=== PATIENT | male | born 1950 | race Caucasian/White ===

== ENCOUNTER 2018-11-24 11:17 | Inpatient (IN) | payer MEDICARE, BC ==
[2018-11-24] MEDS ORDERED: Ibuprofen 200 MG Tab PO PRN (11:47)
[2018-11-24] MEDS ORDERED: Ondansetron 4 MG/2 ML SDV IV PRN (11:47)
[2018-11-24] MEDS ORDERED: Sodium Chloride 0.9% 10 ML Syringe FLUSH PRN (11:47)
[2018-11-24] MEDS ORDERED: Ondansetron 4 MG Tab.DIS PO PRN (11:47)
[2018-11-24] MEDS ORDERED: Temazepam 15 MG Cap PO PRN (11:47)
[2018-11-24] MEDS ORDERED: Nitroglycerin 0.4 MG Tab.SL SL PRN (11:51)
[2018-11-24] MEDS ORDERED: Famotidine 20 MG Tab PO PRN (11:51)
[2018-11-24] MEDS ORDERED: Clindamycin Phosphate in D5W 300 MG in Premix Bag 1 BAG IV SCH ×2 (12:00)
[2018-11-24 12:31] LABS: CHLORIDE,CL 103 mEq/L (98-106); SODIUM,NA 143 mEq/L (136-145)
[2018-11-24] MEDS: Acetaminophen 325 MG Tab PO PRN ×2 (12:31→19:35)
[2018-11-24] MEDS: Sodium Chloride 0.9% 1,000 ML IV SCH (12:32)
[2018-11-24] MEDS: Enoxaparin 40 MG/0.4 ML Syringe SUBCUT SCH (16:02)
[2018-11-24] MEDS: Gemfibrozil 600 MG Tab PO SCH (19:35)
[2018-11-24] MEDS: Metoprolol Tartrate 25 MG Tab PO SCH (19:36)
[2018-11-24] MEDS: atorvaSTATin 20 MG Tab PO SCH (19:36)
[2018-11-24] MEDS: Clindamycin Phosphate in D5W 300 MG in Premix Bag 1 BAG IV SCH ×2 (19:37)
[2018-11-24] MEDS: [UNRECOGNIZED DRUG - REMARK] PO SCH (19:41)
[2018-11-25] MEDS: Clindamycin Phosphate in D5W 300 MG in Premix Bag 1 BAG IV SCH ×8 (01:28→19:30)
[2018-11-25] MEDS: Sodium Chloride 0.9% 1,000 ML IV SCH ×2 (02:04→14:56)
[2018-11-25] MEDS: Acetaminophen 325 MG Tab PO PRN ×2 (04:13→19:29)
[2018-11-25] MEDS: Gemfibrozil 600 MG Tab PO SCH ×2 (07:35→19:29)
[2018-11-25] MEDS: Metoprolol Tartrate 25 MG Tab PO SCH ×2 (07:35→19:29)
[2018-11-25] MEDS: Spironolactone 25 MG Tab PO SCH (07:35)
[2018-11-25] MEDS: Lisinopril 20 MG Tab PO SCH (07:36)
[2018-11-25] MEDS: [UNRECOGNIZED DRUG - REMARK] PO SCH ×2 (07:36→19:30)
[2018-11-25] MEDS: Clopidogrel 75 MG Tab PO SCH (07:36)
[2018-11-25] MEDS: amLODIPine 2.5 MG Tab PO SCH (07:37)
[2018-11-25] MEDS: OMEGA PO SCH (09:17)
[2018-11-25] MEDS: [UNRECOGNIZED DRUG - OTHER] PO SCH (09:17)
[2018-11-25] MEDS: FATTY ACIDS PO SCH (09:17)
[2018-11-25] MEDS: FISH OIL PO SCH (09:17)
--- NOTE | 2018-11-25 14:42 | PCM.PN ---
- General Info Date of Service: 11/25/18 Admission Dx/Problem (Free Text): Erisypelas Functional Status: Reports: Pain Controlled, Tolerating Diet - Review of Systems General: Reports: Fever, Weakness, Fatigue, Malaise, Chills HEENT: Reports: Ear Pain, Sinus Congestion. Denies: Sore Throat Pulmonary: Denies: Shortness of Breath, Cough, Sputum Cardiovascular: Denies: Chest Pain, Edema, Lightheadedness Gastrointestinal: Reports: Nausea (does have mild nausea but is improved). Denies: Abdominal Pain Genitourinary: Reports: No Symptoms Musculoskeletal: Reports: No Symptoms Skin: Reports: Other (facial redness) Neurological: Reports: No Symptoms - Patient Data Vitals - Most Recent: Last Vital Signs Temp 98.9 F 11/25/18 12:00 Pulse 75 11/25/18 12:00 Resp 20 11/25/18 12:00 BP 122/71 11/25/18 12:00 Pulse Ox 96 11/25/18 12:00 Weight - Most Recent: 242 lb 11.2 oz I&O - Last 24 Hours: Intake & Output 11/24/18 11/25/18 11/25/18 22:59 06:59 14:59 Intake Total 50 1050 50 Balance 50 1050 50 Marcial Results Last 24 Hours: Microbiology 11/24/18 12:10 Aerobic Blood Culture - Preliminary Blood - Venous NO GROWTH AFTER 1 DAY Anaerobic Blood Culture - Preliminary NO GROWTH AFTER 1 DAY 11/24/18 12:15 Aerobic Blood Culture - Preliminary Blood - Venous - Lab Draw NO GROWTH AFTER 1 DAY Anaerobic Blood Culture - Preliminary NO GROWTH AFTER 1 DAY Med Orders - Current: Current Medications Acetaminophen (Tylenol) 650 mg PO Q4H PRN PRN Reason: Pain (Mild 1-3)/fever Last Admin: 11/25/18 04:13 Dose: 650 mg Amlodipine Besylate (Norvasc) 5 mg PO DAILY [facility] Last Admin: 11/25/18 07:37 Dose: 5 mg Atorvastatin Calcium (Lipitor) 40 mg PO BEDTIME [facility] Last Admin: 11/24/18 19:36 Dose: 40 mg Clopidogrel Bisulfate (Plavix) 75 mg PO DAILY [facility] Last Admin: 11/25/18 07:36 Dose: 75 mg Enoxaparin Sodium (Lovenox) 40 mg SUBCUT Q24H [facility] Last Admin: 11/24/18 16:02 Dose: 40 mg Famotidine (Pepcid) 10 mg PO DAILY PRN PRN Reason: Dyspepsia Last Admin: 11/24/18 16:02 Dose: 10 mg Gemfibrozil (Lopid) 600 mg PO BID [facility] Last Admin: 11/25/18 07:35 Dose: 600 mg Sodium Chloride (Normal Saline) 1,000 mls @ 75 mls/hr IV ASDIRECTED [facility] Last Admin: 11/25/18 02:04 Dose: 75 mls/hr Clindamycin Phosphate 300 mg/ (Premix) 50 mls @ 100 mls/hr IV 0200,0800,1400, 2000 [facility] Last Admin: 11/25/18 14:01 Dose: 100 mls/hr Ibuprofen (Motrin) 400 mg PO Q6H PRN PRN Reason: Pain (mild 1-3) Lisinopril (Prinivil) 20 mg PO DAILY [facility] Last Admin: 11/25/18 07:36 Dose: 20 mg Metoprolol Tartrate (Lopressor) 25 mg PO BID [facility] Last Admin: 11/25/18 07:35 Dose: 25 mg Nitroglycerin (Nitrostat) 0.4 mg SL ASDIRECTED PRN PRN Reason: Chest Pain Non Form Niacin (1,000 Mg Tab) 1,000 mg PO BID [facility] Last Admin: 11/25/18 07:36 Dose: 1,000 mg Ondansetron HCl (Zofran Odt) 4 mg PO Q4H PRN PRN Reason: nausea, able to take PO Ondansetron HCl (Zofran) 4 mg IV Q4H PRN PRN Reason: Nausea/Vomiting Last Admin: 11/24/18 16:02 Dose: 4 mg Sodium Chloride (Saline Flush) 10 ml FLUSH ASDIRECTED PRN PRN Reason: Keep Vein Open Spironolactone (Aldactone) 25 mg PO DAILY [facility] Last Admin: 11/25/18 07:35 Dose: 25 mg Temazepam (Restoril) 15 mg PO BEDTIME PRN PRN Reason: Sleep Discontinued Medications Clindamycin Phosphate 300 mg/ (Premix) 50 mls @ 100 mls/hr IV Q6H [facility] Last Admin: 11/24/18 12:32 Dose: 100 mls/hr Non-Formulary Medication (Fish Oil/[place]-3 Fatty Acids [Fish Oil 1,000 Mg]) 2 cap PO BID [facility] Last Admin: 11/25/18 09:17 Dose: Not Given - Exam General: Alert, Oriented HEENT: Mucous Membr. Moist/[place] Neck: Supple Lungs: Clear to Auscultation, Normal Respiratory Effort Cardiovascular: Regular Rate, Regular Rhythm GI/Abdominal Exam: Normal Bowel Sounds, Soft, Non-Tender Extremities: Normal Inspection, No Pedal Edema Skin: Other (patient's redness is still present but not as vivid as yesterday. Still warm to the touch. Left ear still has mild swelling.) Neurological: No New Focal Deficit - Problem List & Annotations (1) Erysipelas SNOMED Code(s): 64354170 Code(s): A46 - ERYSIPELAS Status: Acute Priority: High Current Visit: Yes - Problem List Review Problem List Initiated/Reviewed/Updated: Yes - My Orders Last 24 Hours: My Active Orders 11/24/18 16:00 Enoxaparin [Lovenox] 40 mg SUBCUT Q24H 11/24/18 20:00 Clindamycin Phosphate in D5W [Cleocin in D5W] 300 mg Premix Bag 1 bag IV 0200, 0800,1400,2000 Gemfibrozil [Lopid] 600 mg PO BID Metoprolol Tartrate [Lopressor] 25 mg PO BID Niacin [Niacin] 1,000 mg PO BID atorvaSTATin [Lipitor] 40 mg PO BEDTIME 11/24/18 Dinner Agate [Soft Diet] [DIET] 11/25/18 08:00 Clopidogrel [Plavix] 75 mg PO DAILY Lisinopril [Prinivil] 20 mg PO DAILY Spironolactone [Aldactone] 25 mg PO DAILY amLODIPine [Norvasc] 5 mg PO DAILY 11/26/18 05:11 BASIC METABOLIC PANEL,BMP [CHEM] AM C-REACTIVE PROTEIN [CHEM] AM CBC WITH AUTO DIFF [HEME] AM - Assessment Assessment:: Erysipelas - Plan Plan:: Patient has some improvement of his facial redness and swelling since yesterday. He states he does feel less achy today, less nausea. He is running low grade fevers now. Tolerating fluids, not eating all that much yet. WBC on admit yesterday did show elevation at 11.6, CRP of 22. Will continue with IV Cleocin. Treat fevers. Repeat labs in am.
[2018-11-25] MEDS: Enoxaparin 40 MG/0.4 ML Syringe SUBCUT SCH (15:44)
[2018-11-25] MEDS: atorvaSTATin 20 MG Tab PO SCH (19:29)
[2018-11-26] MEDS: Clindamycin Phosphate in D5W 300 MG in Premix Bag 1 BAG IV SCH ×8 (02:23→19:44)
[2018-11-26] MEDS: Sodium Chloride 0.9% 1,000 ML IV SCH ×2 (05:33→19:48)
[2018-11-26 07:31] LABS: CHLORIDE,CL 108 mEq/L (98-106); SODIUM,NA 145 mEq/L (136-145)
[2018-11-26] MEDS: Spironolactone 25 MG Tab PO SCH (07:34)
[2018-11-26] MEDS: Gemfibrozil 600 MG Tab PO SCH ×2 (07:34→19:44)
[2018-11-26] MEDS: Metoprolol Tartrate 25 MG Tab PO SCH ×2 (07:34→19:43)
[2018-11-26] MEDS: amLODIPine 2.5 MG Tab PO SCH (07:35)
[2018-11-26] MEDS: Clopidogrel 75 MG Tab PO SCH (07:35)
[2018-11-26] MEDS: [UNRECOGNIZED DRUG - REMARK] PO SCH ×2 (07:35→19:44)
[2018-11-26] MEDS: Lisinopril 20 MG Tab PO SCH (07:36)
--- NOTE | 2018-11-26 11:09 | PCM.PN ---
- General Info Date of Service: 11/26/18 Admission Dx/Problem (Free Text): Erisypelas Functional Status: Reports: Pain Controlled - Review of Systems General: Reports: No Symptoms HEENT: Reports: No Symptoms Pulmonary: Reports: No Symptoms Cardiovascular: Reports: No Symptoms Gastrointestinal: Reports: No Symptoms Genitourinary: Reports: No Symptoms Musculoskeletal: Reports: No Symptoms Skin: Reports: Rash (redness to face ), Other Psychiatric: Reports: No Symptoms - Patient Data Vitals - Most Recent: Last Vital Signs Temp 98.4 F 11/26/18 08:00 Pulse 79 11/26/18 08:00 Resp 20 11/26/18 08:00 BP 129/83 11/26/18 08:00 Pulse Ox 96 11/26/18 08:00 Weight - Most Recent: 242 lb 11.2 oz I&O - Last 24 Hours: Intake & Output 11/25/18 11/26/18 11/26/18 22:59 06:59 14:59 Intake Total 50 1050 Balance 50 1050 Lab Results Last 24 Hours: Laboratory Results - last 24 hr 11/26/18 11/26/18 Range/Units 05:11 05:11 WBC 7.0 (5.0-10.0) 10^3/uL RBC 4.46 L (4.50-6.00) 10^6/uL Hgb 14.0 (14.0-18.0) g/dL Hct 41.5 (40.0-54.0) % MCV 93.0 (82.0-94.0) fL MCH 31.4 (27.0-32.0) pg MCHC 33.7 (33.0-38.0) g/dL RDW Coeff of Sudhir 12.9 (11.0-15.0) % Plt Count 157 (150-400) 10^3/uL Neut % (Auto) 71.5 (35-85) % Lymph % (Auto) 15.1 (10-55) % [place] % (Auto) 10.5 (0-16) % Eos % (Auto) 2.8 (0-5) % Baso % (Auto) 0.1 (0-3) % Neut # (Auto) 5.02 (1.80-7.00) 10^3/uL Lymph # (Auto) 1.06 (1.00-4.80) 10^3/uL [place] # (Auto) 0.74 (0.00-0.80) 10^3/uL Eos # (Auto) 0.20 (0.00-0.45) 10^3/uL Baso # (Auto) 0.01 10^3/uL Sodium 145 (136-145) mEq/L Potassium 3.4 L (3.5-5.0) mEq/L Chloride 108 H (98-106) mEq/L Carbon Dioxide 30 (21-32) mmol/L BUN 13 (7-18) mg/dL Creatinine 0.8 (0.7-1.3) mg/dL Est Cr Clr Drug Dosing 90.83 mL/min Estimated GFR (MDRD) > 60 (>=60) mL/min Glucose 121 H (75-99) mg/dL Calcium 8.3 L (8.4-10.1) mg/dL C-Reactive Protein 7.7 H (0.2-0.8) mg/dL Marcial Results Last 24 Hours: Microbiology 11/24/18 12:10 Aerobic Blood Culture - Preliminary Blood - Venous NO GROWTH AFTER 1 DAY Anaerobic Blood Culture - Preliminary NO GROWTH AFTER 1 DAY 11/24/18 12:15 Aerobic Blood Culture - Preliminary Blood - Venous - Lab Draw NO GROWTH AFTER 1 DAY Anaerobic Blood Culture - Preliminary NO GROWTH AFTER 1 DAY Med Orders - Current: Current Medications Acetaminophen (Tylenol) 650 mg PO Q4H PRN PRN Reason: Pain (Mild 1-3)/fever Last Admin: 11/25/18 19:29 Dose: 650 mg Amlodipine Besylate (Norvasc) 5 mg PO DAILY [facility] Last Admin: 11/26/18 07:35 Dose: 5 mg Atorvastatin Calcium (Lipitor) 40 mg PO BEDTIME [facility] Last Admin: 11/25/18 19:29 Dose: 40 mg Clopidogrel Bisulfate (Plavix) 75 mg PO DAILY [facility] Last Admin: 11/26/18 07:35 Dose: 75 mg Enoxaparin Sodium (Lovenox) 40 mg SUBCUT Q24H [facility] Last Admin: 11/25/18 15:44 Dose: 40 mg Famotidine (Pepcid) 10 mg PO DAILY PRN PRN Reason: Dyspepsia Last Admin: 11/24/18 16:02 Dose: 10 mg Gemfibrozil (Lopid) 600 mg PO BID [facility] Last Admin: 11/26/18 07:34 Dose: 600 mg Sodium Chloride (Normal Saline) 1,000 mls @ 75 mls/hr IV ASDIRECTED [facility] Last Admin: 11/26/18 05:33 Dose: 75 mls/hr Clindamycin Phosphate 300 mg/ (Premix) 50 mls @ 100 mls/hr IV 0200,0800,1400, 2000 [facility] Last Admin: 11/26/18 07:31 Dose: 100 mls/hr Ibuprofen (Motrin) 400 mg PO Q6H PRN PRN Reason: Pain (mild 1-3) Lisinopril (Prinivil) 20 mg PO DAILY [facility] Last Admin: 11/26/18 07:36 Dose: 20 mg Metoprolol Tartrate (Lopressor) 25 mg PO BID [facility] Last Admin: 11/26/18 07:34 Dose: 25 mg Nitroglycerin (Nitrostat) 0.4 mg SL ASDIRECTED PRN PRN Reason: Chest Pain Non Form Niacin (1,000 Mg Tab) 1,000 mg PO BID [facility] Last Admin: 11/26/18 07:35 Dose: 1,000 mg Ondansetron HCl (Zofran Odt) 4 mg PO Q4H PRN PRN Reason: nausea, able to take PO Ondansetron HCl (Zofran) 4 mg IV Q4H PRN PRN Reason: Nausea/Vomiting Last Admin: 11/24/18 16:02 Dose: 4 mg Sodium Chloride (Saline Flush) 10 ml FLUSH ASDIRECTED PRN PRN Reason: Keep Vein Open Spironolactone (Aldactone) 25 mg PO DAILY [facility] Last Admin: 11/26/18 07:34 Dose: 25 mg Temazepam (Restoril) 15 mg PO BEDTIME PRN PRN Reason: Sleep Discontinued Medications Clindamycin Phosphate 300 mg/ (Premix) 50 mls @ 100 mls/hr IV Q6H [facility] Last Admin: 11/24/18 12:32 Dose: 100 mls/hr Non-Formulary Medication (Fish Oil/[place]-3 Fatty Acids [Fish Oil 1,000 Mg]) 2 cap PO BID [facility] Last Admin: 11/25/18 09:17 Dose: Not Given - Exam General: Alert, Oriented HEENT: Pupils Equal, Pupils Reactive Neck: Supple Lungs: Clear to Auscultation, Normal Respiratory Effort Cardiovascular: Regular Rate, Regular Rhythm GI/Abdominal Exam: Normal Bowel Sounds Extremities: Normal Inspection, No Pedal Edema Skin: Dry, Intact, Rash, Other (decreasing redness to the face and retreating of redness as well. Ears still red and swollen with left being worse than right and tender on touch. ) Neurological: No New Focal Deficit Psy/Mental Status: Alert - Problem List Review Problem List Initiated/Reviewed/Updated: Yes - Assessment Assessment:: Erysipelas - Plan Plan:: Patient has some improvement of his facial redness and swelling since yesterday. He states he does feel less achy today, less nausea. He is running low grade fevers now. Tolerating fluids, not eating all that much yet. WBC on admit yesterday did show elevation at 11.6, CRP of 22. Will continue with IV Cleocin. Treat fevers. Repeat labs in am. 11/26/2018 Labs improving with Decrease in WBC from 11 to 7 and decrease in CRP from 22 to 11-- Patient reports decrease in redness and swelling to the face - tolerating IV antibiotics well. NO pain.
[2018-11-26] MEDS: Enoxaparin 40 MG/0.4 ML Syringe SUBCUT SCH (15:37)
[2018-11-26] MEDS: atorvaSTATin 20 MG Tab PO SCH (19:44)
[2018-11-27] MEDS: Spironolactone 25 MG Tab PO SCH (09:20)
[2018-11-27] MEDS: Clindamycin Phosphate in D5W 300 MG in Premix Bag 1 BAG IV SCH ×6 (09:20→19:28)
[2018-11-27] MEDS: [UNRECOGNIZED DRUG - REMARK] PO SCH ×2 (09:21→19:27)
[2018-11-27] MEDS: Gemfibrozil 600 MG Tab PO SCH ×2 (09:21→19:28)
[2018-11-27] MEDS: Metoprolol Tartrate 25 MG Tab PO SCH ×2 (09:21→19:28)
[2018-11-27] MEDS: amLODIPine 2.5 MG Tab PO SCH (09:21)
[2018-11-27] MEDS: Clopidogrel 75 MG Tab PO SCH (09:21)
[2018-11-27] MEDS: Lisinopril 20 MG Tab PO SCH (09:22)
--- NOTE | 2018-11-27 09:45 | PCM.PN ---
- General Info Date of Service: 11/27/18 Admission Dx/Problem (Free Text): Erisypelas Functional Status: Reports: Pain Controlled, Tolerating Diet, Ambulating, Urinating - Review of Systems General: Reports: No Symptoms HEENT: Reports: No Symptoms Pulmonary: Reports: No Symptoms Cardiovascular: Reports: No Symptoms Skin: Reports: Other (redness to the cheeks and forehead) Neurological: Reports: No Symptoms - Patient Data Vitals - Most Recent: Last Vital Signs Temp 98.7 F 11/26/18 20:00 Pulse 86 11/26/18 20:00 Resp 16 11/26/18 20:00 BP 136/81 11/26/18 20:00 Pulse Ox 98 11/26/18 20:00 Weight - Most Recent: 242 lb 11.2 oz I&O - Last 24 Hours: Intake & Output 11/26/18 11/27/18 11/27/18 22:59 06:59 14:59 Intake Total 1000 Balance 1000 Marcial Results Last 24 Hours: Microbiology 11/24/18 12:10 Aerobic Blood Culture - Preliminary Blood - Venous NO GROWTH AFTER 2 DAYS Anaerobic Blood Culture - Preliminary NO GROWTH AFTER 2 DAYS 11/24/18 12:15 Aerobic Blood Culture - Preliminary Blood - Venous - Lab Draw NO GROWTH AFTER 2 DAYS Anaerobic Blood Culture - Preliminary NO GROWTH AFTER 2 DAYS Med Orders - Current: Current Medications Acetaminophen (Tylenol) 650 mg PO Q4H PRN PRN Reason: Pain (Mild 1-3)/fever Last Admin: 11/25/18 19:29 Dose: 650 mg Amlodipine Besylate (Norvasc) 5 mg PO DAILY [facility] Last Admin: 11/27/18 09:21 Dose: Not Given Atorvastatin Calcium (Lipitor) 40 mg PO BEDTIME [facility] Last Admin: 11/26/18 19:44 Dose: 40 mg Clopidogrel Bisulfate (Plavix) 75 mg PO DAILY [facility] Last Admin: 11/27/18 09:21 Dose: Not Given Enoxaparin Sodium (Lovenox) 40 mg SUBCUT Q24H [facility] Last Admin: 11/26/18 15:37 Dose: 40 mg Famotidine (Pepcid) 10 mg PO DAILY PRN PRN Reason: Dyspepsia Last Admin: 11/24/18 16:02 Dose: 10 mg Gemfibrozil (Lopid) 600 mg PO BID [facility] Last Admin: 11/27/18 09:21 Dose: Not Given Sodium Chloride (Normal Saline) 1,000 mls @ 75 mls/hr IV ASDIRECTED [facility] Last Admin: 11/26/18 19:48 Dose: 75 mls/hr Clindamycin Phosphate 300 mg/ (Premix) 50 mls @ 100 mls/hr IV 0200,0800,1400, 2000 [facility] Last Admin: 11/27/18 09:20 Dose: Not Given Ibuprofen (Motrin) 400 mg PO Q6H PRN PRN Reason: Pain (mild 1-3) Lisinopril (Prinivil) 20 mg PO DAILY [facility] Last Admin: 11/27/18 09:22 Dose: Not Given Metoprolol Tartrate (Lopressor) 25 mg PO BID [facility] Last Admin: 11/27/18 09:21 Dose: Not Given Nitroglycerin (Nitrostat) 0.4 mg SL ASDIRECTED PRN PRN Reason: Chest Pain Non Form Niacin (1,000 Mg Tab) 1,000 mg PO BID [facility] Last Admin: 11/27/18 09:21 Dose: Not Given Ondansetron HCl (Zofran Odt) 4 mg PO Q4H PRN PRN Reason: nausea, able to take PO Ondansetron HCl (Zofran) 4 mg IV Q4H PRN PRN Reason: Nausea/Vomiting Last Admin: 11/24/18 16:02 Dose: 4 mg Sodium Chloride (Saline Flush) 10 ml FLUSH ASDIRECTED PRN PRN Reason: Keep Vein Open Spironolactone (Aldactone) 25 mg PO DAILY [facility] Last Admin: 11/27/18 09:20 Dose: Not Given Temazepam (Restoril) 15 mg PO BEDTIME PRN PRN Reason: Sleep Discontinued Medications Clindamycin Phosphate 300 mg/ (Premix) 50 mls @ 100 mls/hr IV Q6H [facility] Last Admin: 11/24/18 12:32 Dose: 100 mls/hr Non-Formulary Medication (Fish Oil/[place]-3 Fatty Acids [Fish Oil 1,000 Mg]) 2 cap PO BID [facility] Last Admin: 11/25/18 09:17 Dose: Not Given - Exam General: Alert, Oriented HEENT: Pupils Equal, Pupils Reactive, EOMI, Mucous Membr. Moist/[place] Neck: Supple Lungs: Clear to Auscultation, Normal Respiratory Effort Cardiovascular: Regular Rate, Regular Rhythm GI/Abdominal Exam: Normal Bowel Sounds, Soft, Non-Tender Extremities: Normal Inspection, Normal Range of Motion, No Pedal Edema, Normal Capillary Refill Skin: Warm, Dry, Intact, Other (redness and swelling of the face has greatly improved in the last 24 hours.,slight peeling noted to the cheeks and forehead) Neurological: No New Focal Deficit Psy/Mental Status: Alert, Normal Affect - Problem List Review Problem List Initiated/Reviewed/Updated: Yes - My Orders Last 24 Hours: My Active Orders 11/27/18 09:19 BASIC METABOLIC PANEL,BMP [CHEM] Routine CBC WITH AUTO DIFF [HEME] Routine - Assessment Assessment:: Erysipelas - Plan Plan:: Patient has some improvement of his facial redness and swelling since yesterday. He states he does feel less achy today, less nausea. He is running low grade fevers now. Tolerating fluids, not eating all that much yet. WBC on admit yesterday did show elevation at 11.6, CRP of 22. Will continue with IV Cleocin. Treat fevers. Repeat labs in am. 11/26/2018 Labs improving with Decrease in WBC from 11 to 7 and decrease in CRP from 22 to 11-- Patient reports decrease in redness and swelling to the face - tolerating IV antibiotics well. NO pain. 11/27/2018 0945 Great improvement in swelling and redness to the face/ patient states he feels good and is tolerating IV antibiotics- Patient should be able to go home tomorrow.
[2018-11-27 10:24] LABS: CHLORIDE,CL 106 mEq/L (98-106); SODIUM,NA 145 mEq/L (136-145)
[2018-11-27] MEDS: Sodium Chloride 0.9% 1,000 ML IV SCH (11:03)
[2018-11-27] MEDS: Enoxaparin 40 MG/0.4 ML Syringe SUBCUT SCH (16:53)
[2018-11-27] MEDS: atorvaSTATin 20 MG Tab PO SCH (19:27)
[2018-11-28] MEDS: Clindamycin Phosphate in D5W 300 MG in Premix Bag 1 BAG IV SCH ×4 (01:48→07:41)
[2018-11-28] MEDS: amLODIPine 2.5 MG Tab PO SCH (07:41)
[2018-11-28] MEDS: Gemfibrozil 600 MG Tab PO SCH (07:41)
[2018-11-28] MEDS: Spironolactone 25 MG Tab PO SCH (07:42)
[2018-11-28] MEDS: Clopidogrel 75 MG Tab PO SCH (07:42)
[2018-11-28] MEDS: Metoprolol Tartrate 25 MG Tab PO SCH (07:42)
[2018-11-28] MEDS: Lisinopril 20 MG Tab PO SCH (07:42)
[2018-11-28] MEDS: [UNRECOGNIZED DRUG - REMARK] PO SCH (07:43)
--- NOTE | 2018-11-28 10:59 | PCM.DCSUM1 ---
Discharge Summary - Hospital Course Free Text/Narrative:: Patient presented to clinic with 2 day history of fever, malaise and facial redness. Was running fevers of 102-103 at home. Had been achy. Nauseated. Vomited on day prior. Not aware of any open sores or lesions to face. WBC on admit elevated at 11.6, CRP of 22. Admitted and started on IV fluids, Cleocin 300 mg IV every 6 hours. Diagnosis: Stroke: No Modified Tariq Scale: No Symptoms at All Modified Gaffney Scale Score: 0 - Discharge Data Discharge Date: 11/28/18 Discharge Disposition: Home, Self-Care 01 Condition: Good - Discharge Diagnosis/Problem(s) (1) Erysipelas SNOMED Code(s): 30575287 ICD Code: A46 - ERYSIPELAS Status: Acute Priority: High Current Visit: Yes - Patient Summary/Data Complications: none Hospital Course: Patient is much improved. Less facial redness, swelling and warmth. Is feeling much less malaise. Has been afebrile now. Ambulating without difficulty. Appetite has returned, no further nausea or vomiting. WBC normal now at 7.2. Potassium mildly low at 3.3. States ''was overloaded on IV fluids yesterday so was voiding very frequently but that has resolved now since stopping the fluids. - Patient Instructions Diet: Usual Diet as Tolerated Activity: As Tolerated - Discharge Plan *PRESCRIPTION DRUG MONITORING PROGRAM REVIEWED*: No *COPY OF PRESCRIPTION DRUG MONITORING REPORT IN PATIENT ALICE: No Prescriptions/Med Rec: Clindamycin HCl [Cleocin HCl] 300 mg PO QID #28 capsule Home Medications: Home Meds Clopidogrel [Plavix] 75 mg PO DAILY 03/16/14 [History] Famotidine [Pepcid AC] 10 mg PO DAILY PRN 03/16/14 [History] Fish Oil/[place]-3 Fatty Acids [Fish Oil 1,000 MG] 2 cap PO BID 03/16/14 [History] Gemfibrozil [Lopid] 600 mg PO BID 03/16/14 [History] Metoprolol Tartrate [Lopressor] 25 mg PO BID 03/16/14 [History] Niacin 1,000 mg PO BID 03/16/14 [History] Nitroglycerin [Nitrostat] 0.4 mg SL ASDIRECTED PRN 03/16/14 [History] atorvaSTATin [Lipitor] 40 mg PO BEDTIME 03/16/14 [History] Acetaminophen [Acetaminophen Extra Strength] 500 mg PO Q8H PRN 11/24/18 [History ] Benazepril HCl [Lotensin] 20 mg PO DAILY 11/24/18 [History] Spironolactone [Aldactone] 25 mg PO DAILY 11/24/18 [History] amLODIPine Besylate [Amlodipine Besylate] 5 mg PO DAILY 11/24/18 [History] Clindamycin HCl [Cleocin HCl] 300 mg PO QID #28 capsule 11/28/18 [Rx] Oxygen Therapy Mode: Nasal Cannula Patient Handouts: Erysipelas Referrals: Nelsy Marte PA [ED Midlevel Provider] - (Hospital follow up with Jamila in 10 days ) - Discharge Summary/Plan Comment DC Time >30 min.: No - General Info Date of Service: 11/28/18 Admission Dx/Problem (Free Text: Erisypelas Functional Status: Reports: Pain Controlled, Tolerating Diet, Ambulating - Review of Systems General: Denies: Fever, Weakness, Fatigue HEENT: Denies: Ear Pain, Sinus Congestion, Rhinitis Pulmonary: Denies: Shortness of Breath, Cough Cardiovascular: Denies: Chest Pain, Edema, Lightheadedness Gastrointestinal: Denies: Abdominal Pain, Decreased Appetite, Nausea, Vomiting Genitourinary: Reports: No Symptoms Musculoskeletal: Reports: No Symptoms Skin: Reports: Other (redness to facial region much improved) Neurological: Reports: No Symptoms - Patient Data Vitals - Most Recent: Last Vital Signs Temp 96.7 F 11/28/18 08:00 Pulse 88 11/28/18 08:00 Resp 18 11/28/18 08:00 BP 134/88 11/28/18 08:00 Pulse Ox 97 11/28/18 08:00 Weight - Most Recent: 242 lb 11.2 oz I&O - Last 24 hours: Intake & Output 11/27/18 11/28/18 11/28/18 22:59 06:59 14:59 Intake Total 100 50 Balance 100 50 ROSEANN Results - Last 24 hrs: Microbiology 11/24/18 12:10 Aerobic Blood Culture - Preliminary Blood - Venous NO GROWTH AFTER 3 DAYS Anaerobic Blood Culture - Preliminary NO GROWTH AFTER 3 DAYS 11/24/18 12:15 Aerobic Blood Culture - Preliminary Blood - Venous - Lab Draw NO GROWTH AFTER 3 DAYS Anaerobic Blood Culture - Preliminary NO GROWTH AFTER 3 DAYS Med Orders - Current: Current Medications Acetaminophen (Tylenol) 650 mg PO Q4H PRN PRN Reason: Pain (Mild 1-3)/fever Last Admin: 11/25/18 19:29 Dose: 650 mg Amlodipine Besylate (Norvasc) 5 mg PO DAILY [facility] Last Admin: 11/28/18 07:41 Dose: 5 mg Atorvastatin Calcium (Lipitor) 40 mg PO BEDTIME [facility] Last Admin: 11/27/18 19:27 Dose: 40 mg Clopidogrel Bisulfate (Plavix) 75 mg PO DAILY [facility] Last Admin: 11/28/18 07:42 Dose: 75 mg Enoxaparin Sodium (Lovenox) 40 mg SUBCUT Q24H [facility] Last Admin: 11/27/18 16:53 Dose: 40 mg Famotidine (Pepcid) 10 mg PO DAILY PRN PRN Reason: Dyspepsia Last Admin: 11/24/18 16:02 Dose: 10 mg Gemfibrozil (Lopid) 600 mg PO BID [facility] Last Admin: 11/28/18 07:41 Dose: 600 mg Clindamycin Phosphate 300 mg/ (Premix) 50 mls @ 100 mls/hr IV 0200,0800,1400, 2000 [facility] Last Admin: 11/28/18 07:41 Dose: 100 mls/hr Ibuprofen (Motrin) 400 mg PO Q6H PRN PRN Reason: Pain (mild 1-3) Lisinopril (Prinivil) 20 mg PO DAILY [facility] Last Admin: 11/28/18 07:42 Dose: 20 mg Metoprolol Tartrate (Lopressor) 25 mg PO BID [facility] Last Admin: 11/28/18 07:42 Dose: 25 mg Nitroglycerin (Nitrostat) 0.4 mg SL ASDIRECTED PRN PRN Reason: Chest Pain Non Form Niacin (1,000 Mg Tab) 1,000 mg PO BID [facility] Last Admin: 11/28/18 07:43 Dose: 1,000 mg Ondansetron HCl (Zofran Odt) 4 mg PO Q4H PRN PRN Reason: nausea, able to take PO Ondansetron HCl (Zofran) 4 mg IV Q4H PRN PRN Reason: Nausea/Vomiting Last Admin: 11/24/18 16:02 Dose: 4 mg Sodium Chloride (Saline Flush) 10 ml FLUSH ASDIRECTED PRN PRN Reason: Keep Vein Open Spironolactone (Aldactone) 25 mg PO DAILY [facility] Last Admin: 11/28/18 07:42 Dose: 25 mg Temazepam (Restoril) 15 mg PO BEDTIME PRN PRN Reason: Sleep Discontinued Medications Clindamycin Phosphate 300 mg/ (Premix) 50 mls @ 100 mls/hr IV Q6H [facility] Last Admin: 11/24/18 12:32 Dose: 100 mls/hr Sodium Chloride (Normal Saline) 1,000 mls @ 75 mls/hr IV ASDIRECTED [facility] Last Admin: 11/27/18 11:03 Dose: 75 mls/hr Non-Formulary Medication (Fish Oil/[place]-3 Fatty Acids [Fish Oil 1,000 Mg]) 2 cap PO BID [facility] Last Admin: 11/25/18 09:17 Dose: Not Given - Exam General: Reports: Alert, Oriented HEENT: Reports: Mucous Membr. Moist/[place] Neck: Reports: Supple Lungs: Reports: Clear to Auscultation, Normal Respiratory Effort Cardiovascular: Reports: Regular Rate, Regular Rhythm GI/Abdominal Exam: Normal Bowel Sounds, Soft, Non-Tender Skin: Reports: Warm, Dry, Other (facial redness is vastly improved from admit. Less warmth. Less swelling. Nontender today. ) Neurological: Reports: No New Focal Deficit
== END 2018-11-28 09:50 | disposition home or self-care (01) | DRG 603 ==
LOC: UNDOADMIN 11:17 → CC.MS 11:17
PROVIDERS: ADMIT Physician Assistant Medical; ATTEND Family Medicine
DX: A46 Erysipelas (principal); J30.9 Allergic rhinitis, unspecified; I25.10 Atherosclerotic heart disease of native coronary artery without angina pectoris; E78.00 Pure hypercholesterolemia, unspecified; G47.30 Sleep apnea, unspecified; Z79.899 Other long term (current) drug therapy; Z88.0 Allergy status to penicillin; Z98.52 Vasectomy status
CPT/HCPCS: 36415; 80048; 85025; 86140; 87040; A9270-GY; J1650; J2405; J3490; J7030